=== PATIENT | female | born 1945 | race Caucasian/White ===

== ENCOUNTER 2018-04-12 10:11 | Observation (INO) | payer MEDICARE, OTHER ==
[2018-04-12] MEDS ORDERED: Sodium Chloride 0.9% 1,000 ML IV STA (10:37)
--- NOTE | 2018-04-12 10:47 | ED PDOC ---
Arrival/HPI - General Historian: Patient, Family - History of Present Illness Symptom Onset: Sudden Symptom Course: Improving Quality: Stabbing Severity Level: 8 <Bebeto Flores - Last Filed: 04/12/18 16:14> <Chucho Shah DO - Last Filed: 04/12/18 17:25> - General Chief Complaint: GI Problem Time Seen by Provider: 04/12/18 10:14 - History of Present Illness Narrative History of Present Illness (Text): 72 year old female presents with history of 3x vomit and 5x diarrhea since last night. She woke up this morning at 5 AM and had an unrelenting headache and dizziness along with sharp diffuse abdominal pain. Headache was not describable but she described it as being painful on top of her scalp. Abdominal pain was concentrated in the epigastric area and she has never had this kind of pain before. Pain is still present currently but has lessened. Shortly after, she reports nonbloody vomitus, which relieved her headache and dizziness. She has vomited once per hour since then. She also reports having a constant urge to defecate and has had 5 episodes of black-brown diarrhea since waking up. In addition, she reports nonproductive cough for 1 week and was reportedly given an antibiotic by her PCP, Dr. Ho. 04/12/18 10:48 (Bebeto Flores) Past Medical History - Provider Review Nursing Documentation Reviewed: Yes - Past History Past History: Non-Contributing - Cardiac Hx Hyperlipemia: Yes Hx Hypertension: Yes - Pulmonary Hx Respiratory Disorders: No - Neurological Hx Paralysis: No - HEENT Hx HEENT Disorder: No - Renal Hx Renal Disorder: No - Endocrine/Metabolic Hx Endocrine Disorders: No - Hematological/Oncological Hx Blood Transfusions: No - Integumentary Hx Dermatological Disorder: No - Musculoskeletal/Rheumatological Hx Musculoskeletal Disorders: Yes - Gastrointestinal Hx Gastrointestinal Disorders: Yes Other/Comment: ON AND OFF ABDOMINAL PAINS, ileus - Genitourinary/Gynecological Hx Genitourinary Disorders: No - Psychiatric Hx Emotional Abuse: No Hx Physical Abuse: No Hx Substance Use: No - Surgical History Hx Appendectomy: Yes - Anesthesia Hx Anesthesia Reactions: No Hx Malignant Hyperthermia: No - Suicidal Assessment Feels Threatened In Home Enviroment: No <Bebeto Flores - Last Filed: 04/12/18 16:14> Family/Social History - Physician Review Nursing Documentation Reviewed: Yes Family/Social History: Unknown Family HX Smoking Status: Never Smoked Hx Alcohol Use: No Hx Substance Use: No Hx Substance Use Treatment: No <Bebeto Flores - Last Filed: 04/12/18 16:14> Allergies/Home Meds <Bebeto Flores - Last Filed: 04/12/18 16:14> <Chucho Shah DO - Last Filed: 04/12/18 17:25> Allergies/Adverse Reactions: Allergies No Known Allergies Allergy (Verified 05/09/14 14:56) Home Medications: Home Meds Medication Instructions Recorded Confirmed Acetaminophen/Butalbital/Caf 1 tab PO TID PRN 04/12/18 04/12/18 [Fioricet] Hydroxyzine HCl [Hydroxyzine HCl] 10 mg PO BID 04/12/18 04/12/18 Levocetirizine Dihydrochloride 5 mg PO DAILY 04/12/18 04/12/18 [Xyzal] Lisinopril [Zestril] 5 mg PO DAILY 04/12/18 04/12/18 Review of Systems - Physician Review All systems were reviewed & negative as marked: Yes - Review of Systems Constitutional: Fatigue Respiratory: SOB, Cough Cardiovascular: Chest Pain Gastrointestinal: Abdominal Pain, Diarrhea, Nausea, Vomiting <Bebeto Flores - Last Filed: 04/12/18 16:14> Physical Exam Vital Signs Reviewed: Yes Temperature: Afebrile Blood Pressure: Hypertensive Pulse: Regular Respiratory Rate: Normal Appearance: Positive for: Well-Appearing, Non-Toxic Pain Distress: Moderate Mental Status: Positive for: Alert and Oriented X 3 - Systems Exam Head: Present: Atraumatic, Normocephalic Pupils: Present: PERRL Mouth: Present: Moist Mucous Membranes Nose (External): Present: Atraumatic Nose (Internal): Present: Normal Inspection Neck: Present: Normal Range of Motion Respiratory/Chest: Present: Clear to Auscultation Cardiovascular: Present: Regular Rate and Rhythm Abdomen: Present: Tenderness, Normal Bowel Sounds Upper Extremity: Present: Normal Inspection, Normal ROM, NORMAL PULSES Lower Extremity: Present: Normal Inspection, NORMAL PULSES, Normal ROM Neurological: Present: GCS=15, Speech Normal, Motor Func Grossly Intact, Normal Sensory Function Skin: Present: Warm, Dry <Bebeto Flores - Last Filed: 04/12/18 16:14> <Chucho Shah DO - Last Filed: 04/12/18 17:25> Vital Signs Temp Pulse Resp BP Pulse Ox 04/12/18 15:35 75 18 141/68 97 04/12/18 14:36 79 18 145/71 97 04/12/18 13:54 86 18 148/79 97 04/12/18 10:33 98.4 F 90 18 157/87 H 97 Medical Decision Making <Bebeto Flores - Last Filed: 04/12/18 16:14> <Chucho Shah DO - Last Filed: 04/12/18 17:25> ED Course and Treatment: Impression: 72 year old female presents with 3x nonbloody vomitus and 5x nonbloody diarrhea for 1 day. Assessment: Possible small bowel obstruction Rule out pancreatitis, cholecystitis, peptic ulcer disease, gastritis Rule out ACS as reason for reproducible chest pain. Plan: Start zofran 4 mg IVP for vomitus. Start pepcid 20 mg IV for gastric issues. Urine culture to determine etiology of possible infection. Chest X ray to evaluate for pneumonia. Abdominal CT to be done for evaluation of SBO, pancreatitis, and cholecystitis. Lipase study to be done to evaluate for pancreatitis. Troponin to rule out myocardial infarction. Abdominal CT results showed an incarcerated hernia. Patient has been consulted to surgery for evalulation for possible surgery and will be admitted to the surgery and medicine services. 04/12/18 16:15 (Bebeto Flores) A 72 year old female with episodes of vomiting and diarrhea. In agreement with resident note, which includes further HPI details. Patient was seen and evaluated with resident, came up with plan and treatment together. (Chucho Shah DO) - Lab Interpretations Lab Results: 04/12/18 11:15 04/12/18 11:15 Lab Results 04/12/18 11:15: PT 10.9, INR 0.96, APTT 28.0 04/12/18 11:15: Urine Color Yellow, Urine Appearance Clear, Urine pH 7.0, Ur Specific Eagar 1.020, Urine Protein 100 H, Urine Glucose (UA) Negative, Urine Ketones Negative, Urine Blood Small H, Urine Nitrate Negative, Urine Bilirubin Negative, Urine Urobilinogen 1.0 H, Ur Leukocyte Esterase Trace H, Urine RBC 10 - 15, Urine WBC 5 - 10, Ur Epithelial Cells 6 - 8, Amorphous Sediment Moderate, Urine Bacteria Many, Coarse Granular Casts Trace H, Urine Other Uyeast 04/12/18 11:15: Sodium 141, Potassium 3.8, Chloride 101, Carbon Dioxide 28, Anion Gap 17, BUN 15, Creatinine 0.6 L, Est GFR ( Amer) > 60, Est GFR ( Non-Af Amer) > 60, Random Glucose 131 H, Calcium 9.1, Magnesium 1.6 L, Total Bilirubin 0.5, AST 28, ALT 28, Alkaline Phosphatase 64, Lactate Dehydrogenase 525, Total Creatine Kinase 53, Troponin I < 0.01, Total Protein 7.5, Albumin 4.2 , Globulin 3.3, Albumin/Globulin Ratio 1.3, Lipase 99 04/12/18 11:15: WBC 13.1 H D, RBC 4.58, Hgb 13.4, Hct 40.1, MCV 87.6, MCH 29.3, MCHC 33.4, RDW 12.7, Plt Count 236, MPV 8.1, Gran % 90.5 H, Lymph % (Auto) 7.2 L , Mckinley % (Auto) 2.1, Eos % (Auto) 0.0 L, Baso % (Auto) 0.2, Gran # 11.90 H, Lymph # (Auto) 0.9 L, Mckinley # (Auto) 0.3, Eos # (Auto) 0.0, Baso # (Auto) 0.02, Neutrophils % (Manual) 92 H, Lymphocytes % (Manual) 8 L, Monocytes % (Manual) TEST NOT PERFORMED, Platelet Evaluation Normal - RAD Interpretation Radiology Orders: 04/12/18 10:38 ABD & PELVIS IV CONTRAST ONLY [CT] Stat 04/12/18 10:40 CHEST PORTABLE [RAD] Stat - Medication Orders Current Medication Orders: Sodium Chloride (Sodium Chloride 0.9%) 1,000 mls @ 100 mls/hr IV .Q10H MÓNICA Last Admin: 04/12/18 16:55 Dose: 100 mls/hr eMAR Start Stop Document 04/12/18 16:55 AJ (Rec: 04/12/18 16:56 AJ [id number]) Intravenous Solution Start Date 04/12/18 Start Time 16:56 Magnesium 2 gm/50 ml NS (Magnesium Sulfate 2 Gm/50 Ml Ns) 2 gm in 50 mls @ 50 mls/hr IVPB ONCE ONE Stop: 04/12/18 17:34 Last Admin: 04/12/18 17:16 Dose: 50 mls/hr eMAR Start Stop Document 04/12/18 17:16 AJ (Rec: 04/12/18 17:16 AJ [id number]) Intravenous Solution Start Date 04/12/18 Start Time 17:16 Lisinopril (Zestril) 5 mg PO DAILY MÓNICA Ondansetron HCl (Zofran Inj) 4 mg IVP Q6H PRN PRN Reason: Nausea/Vomiting Pantoprazole Sodium (Protonix Inj) 40 mg IVP DAILY MÓNICA Discontinued Medications Famotidine (Pepcid) 20 mg IVP STAT STA Stop: 04/12/18 10:38 Last Admin: 04/12/18 10:56 Dose: 20 mg IVP Administration Document 04/12/18 10:56 AJ (Rec: 04/12/18 10:56 AJ [id number]) Charges for Administration # of IVP Administrations 1 Sodium Chloride (Sodium Chloride 0.9%) 1,000 mls @ 100 mls/hr IV .Q10H STA Stop: 04/12/18 20:36 Last Admin: 04/12/18 10:56 Dose: 100 mls/hr eMAR Start Stop Document 04/12/18 10:56 AJ (Rec: 04/12/18 10:56 AJ [id number]) Intravenous Solution Start Date 04/12/18 Start Time 10:56 Piperacillin Sod/Tazobactam Sod (Zosyn 4.5 Gm In Ns 100ml) 4.5 gm in 100 mls @ 200 mls/hr IVPB STAT STA PRN Reason: Protocol Stop: 04/12/18 15:12 Last Admin: 04/12/18 14:57 Dose: 200 mls/hr eMAR Start Stop Document 04/12/18 14:57 AJ (Rec: 04/12/18 14:57 AJ [id number]) Intravenous Solution Start Date 04/12/18 Start Time 14:57 End Date 04/12/18 End time 15:27 Total Infusion Time 30 Ondansetron HCl (Zofran Inj) 4 mg IVP STAT STA Stop: 04/12/18 10:38 Last Admin: 04/12/18 10:55 Dose: 4 mg IVP Administration Document 04/12/18 10:55 AJ (Rec: 04/12/18 10:55 AJ [id number]) Charges for Administration # of IVP Administrations 1 - PA / ARMED SECURITY GUARD / Resident Statement LORRIE has reviewed & agrees with the documentation as recorded. LORRIE has examined the patient and agrees with the treatment plan. <Bebeto Flores - Last Filed: 04/12/18 16:14> - PA / ARMED SECURITY GUARD / Resident Statement LORRIE has reviewed & agrees with the documentation as recorded. LORRIE has examined the patient and agrees with the treatment plan. - Scribe Statement The provider has reviewed the documentation as recorded by the Scribe <Chucho Shah DO - Last Filed: 04/12/18 17:25> - Scribe Statement Shabnam Owen Provider Scribe Attestation: All medical record entries made by the Scribe were at my direction and personally dictated by me. I have reviewed the chart and agree that the record accurately reflects my personal performance of the history, physical exam, medical decision making, and the department course for this patient. I have also personally directed, reviewed, and agree with the discharge instructions and disposition. (Chucho Shah DO) Disposition/Present on Arrival - Present on Arrival Any Indicators Present on Arrival: No History of DVT/PE: No History of Uncontrolled Diabetes: No Urinary Catheter: No History Surgical Site Infection Following: None - Disposition Have Diagnosis and Disposition been Completed?: Yes Disposition Time: 16:15 <Bebeto Flores - Last Filed: 04/12/18 16:14> - Disposition Disposition Time: 14:05 <Chucho Shah DO - Last Filed: 04/12/18 17:25> - Disposition Diagnosis: Incarcerated hernia Disposition: HOSPITALIZED Patient Problems: Current Active Problems Problem Status Onset Incarcerated hernia Acute Condition: GUARDED
[2018-04-12 11:08] VITALS: BMI 34.3
--- NOTE | 2018-04-12 11:15 | RAD ---
HISTORY: cough - r/o infiltrate COMPARISON: No prior. FINDINGS: LUNGS: Mild bibasilar atelectasis. Questionable small left-sided effusion PLEURA: No significant pleural effusion identified, no pneumothorax apparent. CARDIOVASCULAR: Moderate to fairly significant cardiomegaly OSSEOUS STRUCTURES: .Mild multilevel degenerative spondylosis of the thoracic spine VISUALIZED UPPER ABDOMEN: Normal. OTHER FINDINGS: None. IMPRESSION: Mild bibasilar atelectasis. Questionable small left-sided effusion
[2018-04-12 11:37] LABS: BASO # 0.02 K/mm3 (0.0-2.0); BASO % 0.2 % (0.0-3.0); GRAN % 90.5 % (50.0-68.0); HEMOGLOBIN 13.4 g/dL (12.0-16.0); LYMPH # 0.9 (1.2-3.4); LYMPH % 7.2 % (22.0-35.0); MEAN CELL VOLUME 87.6 fl (80.0-105.0); MEAN CORPUSCULAR HEMOGLOBIN 29.3 pg (25.0-35.0); MEAN CORPUSCULAR HGB CONC 33.4 g/dl (31.0-37.0); MEAN PLATELET VOLUME 8.1 fl (7.0-11.0); MONO # 0.3 (0.1-0.6); MONO % 2.1 % (1.0-6.0); PLATELET COUNT 236 10^3/uL (120.0-450.0); RBC 4.58 10^6/uL (3.5-6.1); RED CELL DISTRIBUTION WIDTH 12.7 % (11.5-14.5); WHITE BLOOD COUNT 13.1 10^3/ul (4.5-11.0)
[2018-04-12 11:43] LABS: URINE BILIRUBIN NEGATIVE (NEGATIVE); URINE BLOOD SMALL (NEGATIVE); URINE GLUCOSE (UA) NEGATIVE (NEGATIVE); URINE LEUKOCYTE ESTERASE TRACE Leu/uL (NEGATIVE); URINE PROTEIN 100 mg/dL (<30 mg/dL)
[2018-04-12 11:48] LABS: ALB/GLOB RATIO 1.3 (1.1-1.8); ALBUMIN 4.2 g/dL (3.0-4.8); ALT/SGPT 28 U/L (7-56); AST/SGOT 28 U/L (14-36); BLOOD UREA NITROGEN 15 mg/dL (7-21); CALCIUM 9.1 mg/dL (8.4-10.5); GFR AFRICAN-AMERICAN > 60; GFR NON-AFRICAN AMERICAN > 60; LIPASE 99 U/L (23-300)
[2018-04-12 11:53] LABS: URINE APPEARANCE CLEAR (CLEAR); URINE COLOR YELLOW (YELLOW)
[2018-04-12] MEDS ORDERED: Iohexol 350 MG/100 ML VIAL ONE (11:53)
[2018-04-12 11:59] LABS: TROPONIN I < 0.01 ng/mL
[2018-04-12 12:16] LABS: URINE BACTERIA MANY (NEG)
[2018-04-12 12:17] LABS: URINE AMORPHOUS SEDIMENT MODERATE; URINE COARSE GRANULAR CAST TRACE /hpf (0-2)
[2018-04-12 12:24] LABS: LYMPHOCYTE 8 % (22.0-35.0); NEUTROPHIL 92 % (50.0-70.0); PLATELET ESTIMATE NORMAL (NORMAL)
--- NOTE | 2018-04-12 14:06 | CT ---
PROCEDURE: CT abdomen pelvis dated 04/12/2018 HISTORY: Diffuse abdominal pain COMPARISON: Comparison made with prior CT scan abdomen pelvis 01/21/2017. TECHNIQUE: Contiguous axial images of the abdomen and pelvis performed following intravenous injection of approximately 100 cc Omnipaque 350 contrast material. Additional 2D sagittal and coronal reformats generated. This CT exam was performed using one or more of the following dose reduction techniques: Automated exposure control, adjustment of the mA and/or kV according to patient size, and/or use of iterative reconstruction technique. Total exam DLP = 660.25 mGy-cm. FINDINGS: LOWER THORAX: Mild passive/dependent type atelectasis. . There are a at chronic appearing atelectasis/scarring changes seen both lung bases including the right middle lobe and to a lesser degree lingular regions. No acute consolidation. No evidence of effusion or basilar pneumothorax. Heart size is mildly enlarged. No significant pericardial effusion. Tiny hiatal hernia with wall thickening of distal esophagus likely due to protrusion of gastric mucosa. . LIVER: The liver is upper limits of normal measuring nearly 18 cm in CC dimension. Mild diffuse fatty hepatic infiltration. No obvious hepatic masses collections or calcifications. No significant intrahepatic biliary ductal dilatation. GALLBLADDER AND BILE DUCTS: UnremarkableIntraluminal gallbladder calculi. . . PANCREAS: Pancreas is slightly atrophic and fatty replaced. No obvious pancreatic mass collection or calcification. SPLEEN: Unremarkable. No splenomegaly. ADRENALS: No adrenal lesions. KIDNEYS AND URETERS: Kidneys demonstrate relatively symmetric size and nephrograms. . No evidence of nephrolithiasis or hydronephrosis. BLADDER: Urinary bladder is physiologically distended with mild wall thickening and therefore correlation with urinalysis recommended to exclude the possibility of a cystitis. . Mild wall thickening REPRODUCTIVE: There is a prominent endometrial canal for postmenopausal patient. Recommend followup transvaginal ultrasound further evaluation of the endometrium. APPENDIX: Right-sided colectomy changes as above BOWEL: Evaluation of the bowel is somewhat limited due to the lack of oral contrast material. Stomach is incompletely distended which presumably accounts thick-walled appearance. . There is a left parasagittal mid ventral wall paraumbilical hernia that contains mesenteric fat as well as a loop of small bowel that exhibits mild wall thickening and a small amount of fluid and surrounding infiltration. . There is a dilatation and wall thickening of the proximal loop of small bowel extending into this hernia (afferent loop of bowel). . Findings are most likely represent incarceration at and possibly strangulation with early ischemia. Distal small bowel loops appear collapsed. Apparent partial right-sided colectomy. Clinical correlation recommended. PERITONEUM: There is a small amount of free fluid seen in the pelvis. LYMPH NODES: Unremarkable. No enlarged lymph nodes. VASCULATURE: Unremarkable. No aortic aneurysm. BONES: Multilevel degenerative spondylosis of the lower thoracic and lumbar spine. No acute compression fractures no retropulsed fragments. OTHER FINDINGS: None. IMPRESSION: There is a left parasagittal mid ventral wall - paraumbilical hernia containing a loop of small bowel that exhibits wall thickening and infiltration changes in the adjacent mesenteries. Findings likely represent incarceration with possible early ischemia. There is also wall thickening of the current loop of bowel which is dilated. Loops of small bowel distal to the hernia appear collapsed. Partial right-sided colectomy. Fatty hepatic infiltration. Cholelithiasis. Prominence of the endometrium in a postmenopausal at age patient. Followup pelvic ultrasound recommended to exclude endometrial pathology including endometrial carcinoma. Urgent findings were discussed with emergency room physician Dr. Shah approximately 2 p.m. with written down and read back verification.
[2018-04-12] MEDS ORDERED: Piperacill/Tazo 4.5gm in NS 4.5 GM/100 ML BAG IVPB STA (14:43)
[2018-04-12 14:58] LABS: INR 0.96 (0.93-1.08); PROTHROMBIN TIME 10.9 SECONDS (9.4-12.5)
--- NOTE | 2018-04-12 16:06 | CP.PCM.CON ---
<Cyn Haywood - Last Filed: 04/12/18 16:46> History of Present Illness - History of Present Illness History of Present Illness: GENERAL SURGERY CONSULT NOTE FOR DR. HANKINS Pt is a 72 yo F with PMHx of esophagitis, gastritis, diverticulosis and numerous abdominal surgeries. She comes in to the ED, brought in by ambulance after a morning episode of emesis and 4 bouts of diarrhea, non bloody. She then developed abdominal pain that she rated 8/10. She also noted that every time she would cough, or vomit she would feel a bump of her abdomen expand. She states that she has had a hernia present on the left paraumbilical area for the past 2 years and prior surgical intervention was recommended, which she refused. Her pain is now improved to 5/6 and is localized to her left paraumbilical hernia. She last passed flatus yesterday. PMHx: HTN, diverticulosis, gastritis, esophagitis Surgeries: partial colectomy, x3 Allerg: none Social hx: denies etoh, tobacco or illicit drug abuse Review of Systems - Constitutional Constitutional: absent: Chills, Fever, Night Sweats - EENT Eyes: absent: Blurred Vision, Loss of Peripheral Vision, Other Visual Disturbances Ears: absent: Decreased Hearing, Ear Discharge, Tinnitus Nose/Mouth/Throat: absent: Epistaxis, Nasal Congestion - Cardiovascular Cardiovascular: absent: Chest Pain, Edema, Irregular Heart Rhythm - Respiratory Respiratory: Cough. absent: Dyspnea on Exertion, Wheezing - Gastrointestinal Gastrointestinal: Abdominal Pain, Diarrhea, Nausea. absent: Coffee Ground Emesis, Hematemesis, Hematochezia - Musculoskeletal Musculoskeletal: absent: Muscle Cramps, Muscle Weakness, Myalgias - Integumentary Integumentary: absent: New Lesions, Non-Healing Lesions, Rash - Neurological Neurological: absent: Numbness, Loss of Vision, Sensory Deficit, Tingling Past Patient History - Infectious Disease Hx of Infectious Diseases: None - Past Medical History & Family History Past Medical History?: Yes - Past Social History Smoking Status: Never Smoked Alcohol: None Home Situation {Lives}: With Family - CARDIAC Hx Cardiac Disorders: No Hx Angina: No Hx Heart Attack: No Hx Hypertension: Yes - PULMONARY Hx Respiratory Disorders: No - NEUROLOGICAL Hx Paralysis: No - HEENT Hx HEENT Problems: No - RENAL Hx Chronic Kidney Disease: No - ENDOCRINE/METABOLIC Hx Endocrine Disorders: No - HEMATOLOGICAL/ONCOLOGICAL Hx Blood Transfusions: No - INTEGUMENTARY Hx Dermatological Problems: No - MUSCULOSKELETAL/RHEUMATOLOGICAL Hx Musculoskeletal Disorders: Yes - GASTROINTESTINAL Hx Gastrointestinal Disorders: Yes Hx Bowel Surgery: Yes (Stated had bowel surgery for prior colon infection 30 years ago) Hx Clostridium Difficile: No Hx Colostomy: No Hx Constipation: No Hx Crohn's Disease: No Hx Diarrhea: Yes Hx Diverticulitis: Yes Hx Esophageal Varices: No Hx Gastritis: Yes Hx Nausea: Yes Hx Vomiting: Yes Other/Comment: ON AND OFF ABDOMINAL PAINS, ileus - GENITOURINARY/GYNECOLOGICAL Hx Genitourinary Disorders: No - PSYCHIATRIC Hx Emotional Abuse: No Hx Physical Abuse: No Hx Substance Use: No - SURGICAL HISTORY Hx Appendectomy: Yes Hx Section: Yes (3 prior) - ANESTHESIA Hx Anesthesia Reactions: No Hx Malignant Hyperthermia: No Meds Allergies/Adverse Reactions: Allergies Allergy/AdvReac Type Severity Reaction Status Date / Time No Known Allergies Allergy Verified 05/09/14 14:56 - Medications Medications: Current Medications Sodium Chloride (Sodium Chloride 0.9%) 1,000 mls @ 100 mls/hr IV .Q10H STA Stop: 04/12/18 20:36 Last Admin: 04/12/18 10:56 Dose: 100 mls/hr Physical Exam - Constitutional Appears: Well, Non-toxic - Head Exam Head Exam: ATRAUMATIC, NORMOCEPHALIC - Eye Exam Eye Exam: EOMI, Normal appearance, PERRL - Respiratory Exam Respiratory Exam: Clear to Auscultation Bilateral, NORMAL BREATHING PATTERN - Cardiovascular Exam Cardiovascular Exam: REGULAR RHYTHM, RRR. absent: Gallop, Rubs - GI/Abdominal Exam GI & Abdominal Exam: Hernia, Soft. absent: Distended, Firm, Guarding, Rebound, Rigid, Tenderness Additional comments: Non tender, easily reducible ventral hernia at left paraumbilical area. No overlying erythema or skin changes. No rebound/rigidity/guarding. No peritoneal signs. Well healed lower midline scar - Neurological Exam Neurological exam: Alert, Oriented x3 - Psychiatric Exam Psychiatric exam: Normal Affect, Normal Mood - Skin Skin Exam: Dry, Intact, Normal Color, Warm Additional comments: No skin changes noted over paraumbilical hernia. Results - Vital Signs Recent Vital Signs: Last Vital Signs Temp 98.4 F 04/12/18 10:33 Pulse 75 04/12/18 15:35 Resp 18 04/12/18 15:35 BP 141/68 04/12/18 15:35 Pulse Ox 97 04/12/18 15:35 - Labs Result Diagrams: 04/12/18 11:15 04/12/18 11:15 Assessment & Plan - Assessment and Plan (Free Text) Assessment: Pt is a 72 yo F who presents for a reducible ventral hernia at the left paraumbilical area. Plan: - F/u stat lactate - Serial abdominal exams - Continue NPO, IV fluids - Monitor I/Os - Anti-emetic/analegsic medication PRN - Further recs per Dr. Hankins <Jayesh Hankins - Last Filed: 04/15/18 15:05> Results - Vital Signs Recent Vital Signs: Last Vital Signs Temp 98.5 F 04/13/18 06:00 Pulse 85 04/13/18 09:13 Resp 20 04/13/18 06:00 BP 176/98 H 04/13/18 09:13 Pulse Ox 95 04/13/18 06:00 - Labs Result Diagrams: 04/13/18 04:30 04/13/18 04:30 Attending/Attestation - Attestation I have personally seen and examined this patient.: Yes I have fully participated in the care of the patient.: Yes I have reviewed all pertinent clinical information: Yes Notes (Text): Pt was seen and examined at bedside Agree with above note and assessment Pt with Abdominal pain and reducible incisional hernia Labs and radiology reviewed Ass: Incisional hernia Plan : f.u lactate level c.w current mx Start liquid diet Plan d.w pt in detail Risk and benefit explained in detail
[2018-04-12] MEDS ORDERED: Magnesium 2 gm/50 ml NS 2 GM/50 ML BAG IVPB ONE (16:35)
[2018-04-12] MEDS: Sodium Chloride 0.9% 1,000 ML IV SCH (16:55)
--- NOTE | 2018-04-12 16:55 | CP.PCM.HP ---
History of Present Illness - History of Present Illness History of Present Illness: cc: vomiting and diarrhea HPI: This is 72 year old female with PMH of HTN, who presents to [facility] [place] for vomiting and diarrhea x1 day. Per patient, she began experiencing nausea around 10AM this morning and subsequently had bouts of vomitus and non-bloody, dark-colored diarrhea. Patient says that this has never happened before, however she noticed that her existing abdominal hernia has become more prominent, which prompted her to arrive to the ED. Patient states she was diagnosed with hernia several years prior to intra-abdominal surgery due to complication during C/S. The patient describes the vomitus as some food followed by liquid, but denied any hematemesis. Patient admits to dizziness, chronic mild cough, hernia. ROS otherwise unremarkable for chest pain, SOB, hematochezia, and/or fever. Patient says she is able to ambulate well with or without a cane and lives at home with her daughter. PMH: HTN Surgeries: S/P C/S x3, and subsequent partial hemicolectomy Allergies: NKDA Social History: - Denies ETOH, drugs, and/or tobacco. Patient lives at home with her daughter Family History: - Sister: due to breast cancer - Brother: due to prostate cancer - patient denies family history of heart disease PMD: Arnol Knight Medications, as per [facility] Pharmacy: [facility] Present on Admission - Present on Admission Any Indicators Present on Admission: No History of DVT/PE: No History of Uncontrolled Diabetes: No Urinary Catheter: No Decubitus Ulcer Present: No History Surgical Site Infection Following: None Review of Systems - Review of Systems All systems: reviewed and no additional remarkable complaints except (12 point ROS reviewed, and is negative other than what is indicated in HPI) Past Patient History - Infectious Disease Hx of Infectious Diseases: None - Past Medical History & Family History Past Medical History?: Yes - Past Social History Smoking Status: Never Smoked Alcohol: None Home Situation {Lives}: With Family - CARDIAC Hx Cardiac Disorders: No Hx Angina: No Hx Heart Attack: No Hx Hypertension: Yes - PULMONARY Hx Respiratory Disorders: No - NEUROLOGICAL Hx Paralysis: No - HEENT Hx HEENT Problems: No - RENAL Hx Chronic Kidney Disease: No - ENDOCRINE/METABOLIC Hx Endocrine Disorders: No - HEMATOLOGICAL/ONCOLOGICAL Hx Blood Transfusions: No - INTEGUMENTARY Hx Dermatological Problems: No - MUSCULOSKELETAL/RHEUMATOLOGICAL Hx Musculoskeletal Disorders: Yes - GASTROINTESTINAL Hx Gastrointestinal Disorders: Yes Hx Bowel Surgery: Yes (Stated had bowel surgery for prior colon infection 30 years ago) Hx Clostridium Difficile: No Hx Colostomy: No Hx Constipation: No Hx Crohn's Disease: No Hx Diarrhea: Yes Hx Diverticulitis: Yes Hx Esophageal Varices: No Hx Gastritis: Yes Hx Nausea: Yes Hx Vomiting: Yes Other/Comment: ON AND OFF ABDOMINAL PAINS, ileus - GENITOURINARY/GYNECOLOGICAL Hx Genitourinary Disorders: No - PSYCHIATRIC Hx Emotional Abuse: No Hx Physical Abuse: No Hx Substance Use: No - SURGICAL HISTORY Hx Appendectomy: Yes Hx Section: Yes (3 prior) - ANESTHESIA Hx Anesthesia Reactions: No Hx Malignant Hyperthermia: No Meds Allergies/Adverse Reactions: Allergies Allergy/AdvReac Type Severity Reaction Status Date / Time No Known Allergies Allergy Verified 05/09/14 14:56 Physical Exam - Constitutional Appears: No Acute Distress - Head Exam Head Exam: ATRAUMATIC, NORMAL INSPECTION, NORMOCEPHALIC - Eye Exam Eye Exam: Normal appearance. absent: Conjunctival injection, Periorbital swelling - ENT Exam ENT Exam: Mucous Membranes Moist, Normal Exam, Normal Oropharynx - Neck Exam Neck exam: Positive for: Full Rom, Normal Inspection. Negative for: Lymphadenopathy, Tenderness, Thyromegaly - Respiratory Exam Respiratory Exam: Clear to Auscultation Bilateral, NORMAL BREATHING PATTERN. absent: Accessory Muscle Use, Chest Wall Tenderness, Decreased Breath Sounds, Prolonged Expiratory Phase, Rales, Rhonchi, Wheezes, Respiratory Distress, Stridor - Cardiovascular Exam Cardiovascular Exam: REGULAR RHYTHM, RRR. absent: Gallop, Rubs, Systolic Murmur - GI/Abdominal Exam GI & Abdominal Exam: Hernia (periumbilical ventral hernia ), Normal Bowel Sounds , Tenderness (diffuse tenderness to palpation and percussion ). absent: Bruit, Diminished Bowel Sounds, Distended, Firm, Guarding, Hyperactive Bowel Sounds, Hypoactive Bowel Sounds, Mass, Rebound, Rigid Additional comments: ventral scar midline spanning 4 inches along abdomen - Extremities Exam Extremities exam: Positive for: full ROM, normal inspection. Negative for: calf tenderness, pedal edema, tenderness - Back Exam Back exam: FULL ROM, NORMAL INSPECTION. absent: CVA tenderness (L), CVA tenderness (R), muscle spasm, paraspinal tenderness, rash noted - Neurological Exam Neurological exam: Alert, CN II-XII Intact, Normal Gait, Oriented x3 - Psychiatric Exam Psychiatric exam: Normal Affect, Normal Mood - Skin Skin Exam: Dry, Intact, Normal Color, Warm Results - Vital Signs Recent Vital Signs: Last Vital Signs Temp 98.4 F 04/12/18 10:33 Pulse 75 04/12/18 15:35 Resp 18 04/12/18 15:35 BP 141/68 04/12/18 15:35 Pulse Ox 97 04/12/18 15:35 - Labs Result Diagrams: 04/12/18 11:15 04/12/18 11:15 Assessment & Plan - Assessment and Plan (Free Text) Assessment: This is a 72 year old female with PMH of HTN, and distant history of intra- abdominal surgeries including C/S x3 with subsequent partial hemicolectomy, who presents to [facility] [place] for vomiting and diarrhea. 1. periumbilical ventral abdominal hernia - Lactic Acid pending - CT showed periumbilical ventral hernia containing loop of small bowel - Surgery consulted and onboard - Keep NPO - IVF - WBC 13.1 on admission - 1 dose Zosyn 4.5mg given in ED - Consider Zofran for nausea - EKG findings: normal sinus rate 94 - Trops neg x1 - CXR: bibasilar atelectasis - incentive spirometry ordered - Stool occult pending 2. Hypomagnesemia - 1.6 on admission - replete with IVPB mag sulfate - continue to monitor and replete as needed 3. Hx HTN - continue home meds 4. Abnormal endometrium on CT ABD - Recommend follow up outpatient for ultrasound GI/ DVT PPX - Protonix - SCD for DVT PPX dispo: Patient has no cardiac history, COPD, family history of heart disease, diabetes; Age is the only risk factor, and as such, patient is medically clear for surgery, low-mod risk. Patient was seen and discussed with Dr. Hidalgo. Timothy Brown PGY1
[2018-04-12 18:27] LABS: VENOUS BLOOD GAS BASE EXCESS 4.6 mmol/L (0.0-2.0); VENOUS BLOOD GAS PO2 33 mm/Hg (30-55); VENOUS BLOOD PH 7.36 (7.32-7.43)
[2018-04-12 19:00] VITALS: RESP 20
[2018-04-13 04:57] LABS: BASO # 0.02 K/mm3 (0.0-2.0); BASO % 0.2 % (0.0-3.0); EOS # 0.2 (0.0-0.7); EOS % 1.8 % (1.5-5.0); GRAN # 8.36 (1.4-6.5); GRAN % 74.5 % (50.0-68.0); HEMOGLOBIN 12.2 g/dL (12.0-16.0); LYMPH % 17.6 % (22.0-35.0); MEAN CELL VOLUME 89.4 fl (80.0-105.0); MEAN CORPUSCULAR HEMOGLOBIN 28.8 pg (25.0-35.0); MEAN CORPUSCULAR HGB CONC 32.3 g/dl (31.0-37.0); MEAN PLATELET VOLUME 8.2 fl (7.0-11.0); MONO # 0.7 (0.1-0.6); MONO % 5.9 % (1.0-6.0); RBC 4.23 10^6/uL (3.5-6.1); RED CELL DISTRIBUTION WIDTH 13.1 % (11.5-14.5); WHITE BLOOD COUNT 11.2 10^3/ul (4.5-11.0)
[2018-04-13 05:29] LABS: ALB/GLOB RATIO 1.2 (1.1-1.8); ALT/SGPT 27 U/L (7-56); AST/SGOT 24 U/L (14-36); BLOOD UREA NITROGEN 15 mg/dL (7-21); CALCIUM 8.9 mg/dL (8.4-10.5); GFR AFRICAN-AMERICAN > 60; GFR NON-AFRICAN AMERICAN > 60
[2018-04-13] MEDS: Sodium Chloride 0.9% 1,000 ML IV SCH (05:54)
[2018-04-13 08:14] VITALS: PULSE 85; TEMP 98.5; O2SAT 95
[2018-04-13 09:14] VITALS: BP 176/98
--- NOTE | 2018-04-13 09:32 | CARD ---
APPROVED REPORT EKG Measurement Heart [id number] <Conclusion> Normal sinus rhythm Possible Left atrial enlargement Left axis deviation Possible Inferior infarct, age undetermined NSSTW changes Prolonged QTc
--- NOTE | 2018-04-13 09:51 | CP.PCM.PN ---
<Cyn Haywood - Last Filed: 04/13/18 14:29> Subjective - Date & Time of Evaluation Date of Evaluation: 04/13/18 Time of Evaluation: 09:46 - Subjective Subjective: General Surgery Note for Dr. Hankins Pt was seen and examined this morning at bedside. She has had no acute overnight events. She continues to complain of 4/10 abdominal pain when coughing. the ventral hernia is reducible and she states that she is amenable to outpt followup and robotic surgery intervention with Dr. Hankins. Denies fevers, chills, nausea, or vomiting. She is able to eat without pain and has passed flatus and had a BM this AM. Objective - Vital Signs/Intake and Output Vital Signs (last 24 hours): Temp Pulse Resp BP Pulse Ox 98.5 F 85 20 176/98 H 95 04/13/18 06:00 04/13/18 09:13 04/13/18 06:00 04/13/18 09:13 04/13/18 06:00 Intake and Output: 04/13/18 04/13/18 06:59 18:59 Intake Total 600 Balance 600 - Medications Medications: Current Medications Lisinopril (Zestril) 5 mg PO DAILY [facility] Last Admin: 04/13/18 09:13 Dose: 5 mg Ondansetron HCl (Zofran Inj) 4 mg IVP Q6H PRN PRN Reason: Nausea/Vomiting Pantoprazole Sodium (Protonix Inj) 40 mg IVP DAILY [facility] Last Admin: 04/13/18 09:13 Dose: 40 mg - Labs Labs: 04/13/18 04:30 04/13/18 04:30 PT 10.9 SECONDS (9.4-12.5) 04/12/18 11:15 INR 0.96 (0.93-1.08) 04/12/18 11:15 APTT 28.0 Seconds (25.1-36.5) 04/12/18 11:15 - Constitutional Appears: Well, Non-toxic, No Acute Distress - Head Exam Head Exam: ATRAUMATIC, NORMOCEPHALIC - Eye Exam Eye Exam: EOMI, Normal appearance Pupil Exam: PERRL - ENT Exam ENT Exam: Mucous Membranes Moist - Respiratory Exam Respiratory Exam: Clear to Ausculation Bilateral, NORMAL BREATHING PATTERN - Cardiovascular Exam Cardiovascular Exam: REGULAR RHYTHM, RRR - GI/Abdominal Exam GI & Abdominal Exam: Soft, Hernia, Normal Bowel Sounds. absent: Firm, Guarding , Rigid Additional comments: Ventral hernia located on the left side in the paraumbilical area - Neurological Exam Neurological Exam: Alert, Awake, Oriented x3 - Psychiatric Exam Psychiatric exam: Normal Affect, Normal Mood - Skin Skin Exam: Dry, Intact, Normal Color, Warm Additional comments: No skin changes noted over the hernia site. Assessment and Plan - Assessment and Plan (Free Text) Assessment: Pt is a 72 yo F who presents for a reducible ventral hernia at the left paraumbilical area. Plan: - Rec outpt follow up with Dr. Hankins for elective robotic hernia repair. - Advance diet as tolerated - Discussed with Dr. Hankins. <Jayesh Hankins - Last Filed: 04/15/18 15:19> Objective - Vital Signs/Intake and Output Vital Signs (last 24 hours): Temp Pulse Resp BP Pulse Ox 98.5 F 85 20 176/98 H 95 04/13/18 06:00 04/13/18 09:13 04/13/18 06:00 04/13/18 09:13 04/13/18 06:00 - Labs Labs: 04/13/18 04:30 04/13/18 04:30 PT 10.9 SECONDS (9.4-12.5) 04/12/18 11:15 INR 0.96 (0.93-1.08) 04/12/18 11:15 APTT 28.0 Seconds (25.1-36.5) 04/12/18 11:15 Attending/Attestation - Attestation I have personally seen and examined this patient.: Yes I have fully participated in the care of the patient.: Yes I have reviewed all pertinent clinical information, including history, physical exam and plan: Yes Notes (Text): Pt was seen and examined at bedside Agree with above note and assessment Pt is improved clinically Tolerating diet f/u as out pt for hernia repair Plan d.w pt in detail Risk and benefit explained in detail.
--- NOTE | 2018-04-13 16:51 | CP.PCM.DIS ---
Addendum entered and electronically signed by Uli Saldivar DO 04/14/18 14:31 : After patient had been discharged, urine cultures returned positive for Enterococcus faecalis, which is sensitive to ampicillin. Patient was contacted via phone and results were explained and discussed. Prescription for Amoxicillin 500 mg BID x7 days was called in to her pharmacy, [facility] in [place], [place] . Patient was instructed to complete 7 day course of antibiotics. Close outpatient follow up was also reiterated. Patient acknowledged and agreed to plan. Original Note: <Uli Saldivar - Last Filed: 04/13/18 16:37> Provider - Provider Date of Admission: 04/12/18 14:45 Attending physician: Gerard Hidalgo MD Consults: Surgery: Cr Time Spent in preparation of Discharge (in minutes): 45 Diagnosis - Discharge Diagnosis (1) Incarcerated hernia Status: Acute Priority: Medium Hospital Course - Lab Results Lab Results: Most Recent Lab Values WBC 11.2 10^3/ul (4.5-11.0) H 04/13/18 04:30 RBC 4.23 10^6/uL (3.5-6.1) 04/13/18 04:30 Hgb 12.2 g/dL (12.0-16.0) 04/13/18 04:30 Hct 37.8 % (36.0-48.0) 04/13/18 04:30 MCV 89.4 fl (80.0-105.0) 04/13/18 04:30 MCH 28.8 pg (25.0-35.0) 04/13/18 04:30 MCHC 32.3 g/dl (31.0-37.0) 04/13/18 04:30 RDW 13.1 % (11.5-14.5) 04/13/18 04:30 Plt Count 268 10^3/uL (120.0-450.0) 04/13/18 04:30 MPV 8.2 fl (7.0-11.0) 04/13/18 04:30 Gran % 74.5 % (50.0-68.0) H 04/13/18 04:30 Lymph % (Auto) 17.6 % (22.0-35.0) L 04/13/18 04:30 [place] % (Auto) 5.9 % (1.0-6.0) 04/13/18 04:30 Eos % (Auto) 1.8 % (1.5-5.0) 04/13/18 04:30 Baso % (Auto) 0.2 % (0.0-3.0) 04/13/18 04:30 Gran # 8.36 (1.4-6.5) H 04/13/18 04:30 Lymph # (Auto) 2.0 (1.2-3.4) 04/13/18 04:30 [place] # (Auto) 0.7 (0.1-0.6) H 04/13/18 04:30 Eos # (Auto) 0.2 (0.0-0.7) 04/13/18 04:30 Baso # (Auto) 0.02 K/mm3 (0.0-2.0) 04/13/18 04:30 Neutrophils % (Manual) 92 % (50.0-70.0) H 04/12/18 11:15 Lymphocytes % (Manual) 8 % (22.0-35.0) L 04/12/18 11:15 Monocytes % (Manual) TEST NOT PERFORMED 04/12/18 11:15 Platelet Evaluation Normal (NORMAL) 04/12/18 11:15 PT 10.9 SECONDS (9.4-12.5) 04/12/18 11:15 INR 0.96 (0.93-1.08) 04/12/18 11:15 APTT 28.0 Seconds (25.1-36.5) 04/12/18 11:15 pO2 33 mm/Hg (30-55) 04/12/18 18:22 VBG pH 7.36 (7.32-7.43) 04/12/18 18:22 VBG pCO2 56.0 (40-60) 04/12/18 18:22 VBG HCO3 31.6 mmol/l (21-28) H 04/12/18 18:22 VBG Total CO2 33.3 mmol.L (22-28) H 04/12/18 18:22 VBG O2 Sat (Calc) 67.3 % (40-65) H 04/12/18 18:22 VBG Base Excess 4.6 mmol/L (0.0-2.0) H 04/12/18 18:22 VBG Potassium 4.0 mmol/L (3.6-5.2) 04/12/18 18:22 Sodium 141.0 mmol/L (132-148) 04/12/18 18:22 Chloride 103.0 mmol/L (98-107) 04/12/18 18:22 Glucose 128 mg/dl (65-105) H 04/12/18 18:22 Lactate 1.3 mmol/L (0.7-2.1) 04/12/18 18:22 FiO2 21.0 % 04/12/18 18:22 Sodium 144 mmol/L (132-148) 04/13/18 04:30 Potassium 4.0 mmol/L (3.6-5.0) 04/13/18 04:30 Chloride 104 mmol/L (98-107) 04/13/18 04:30 Carbon Dioxide 28 mmol/L (21-33) 04/13/18 04:30 Anion Gap 16 (10-20) 04/13/18 04:30 BUN 15 mg/dL (7-21) 04/13/18 04:30 Creatinine 0.7 mg/dl (0.7-1.2) 04/13/18 04:30 Est GFR ( Amer) > 60 04/13/18 04:30 Est GFR (Non-Af Amer) > 60 04/13/18 04:30 Random Glucose 115 mg/dL (70-110) H 04/13/18 04:30 Lactic Acid 1.1 mmol/L (0.7-2.1) 04/13/18 04:30 Calcium 8.9 mg/dL (8.4-10.5) 04/13/18 04:30 Phosphorus 3.4 mg/dL (2.5-4.5) 04/13/18 04:30 Magnesium 2.5 mg/dL (1.7-2.2) H 04/13/18 04:30 Total Bilirubin 0.5 mg/dL (0.2-1.3) 04/13/18 04:30 AST 24 U/L (14-36) 04/13/18 04:30 ALT 27 U/L (7-56) 04/13/18 04:30 Alkaline Phosphatase 54 U/L (38-126) 04/13/18 04:30 Lactate Dehydrogenase 525 U/L (333-699) 04/12/18 11:15 Total Creatine Kinase 53 U/L (35-230) 04/12/18 11:15 Troponin I < 0.01 ng/mL 04/12/18 11:15 Total Protein 7.2 g/dL (5.8-8.3) 04/13/18 04:30 Albumin 4.0 g/dL (3.0-4.8) 04/13/18 04:30 Globulin 3.2 gm/dL 04/13/18 04:30 Albumin/Globulin Ratio 1.2 (1.1-1.8) 04/13/18 04:30 Lipase 99 U/L (23-300) 04/12/18 11:15 Venous Blood Potassium 4.0 mmol/L (3.6-5.2) 04/12/18 18:22 Urine Color Yellow (YELLOW) 04/12/18 11:15 Urine Appearance Clear (CLEAR) 04/12/18 11:15 Urine pH 7.0 (4.7-8.0) 04/12/18 11:15 Ur Specific R[place]y 1.020 (1.005-1.035) 04/12/18 11:15 Urine Protein 100 mg/dL (<30 mg/dL) H 04/12/18 11:15 Urine Glucose (UA) Negative mg/dL (NEGATIVE) 04/12/18 11:15 Urine Ketones Negative mg/dL (NEGATIVE) 04/12/18 11:15 Urine Blood Small (NEGATIVE) H 04/12/18 11:15 Urine Nitrate Negative (NEGATIVE) 04/12/18 11:15 Urine Bilirubin Negative (NEGATIVE) 04/12/18 11:15 Urine Urobilinogen 1.0 E.U./dL (<1 E.U./dL) H 04/12/18 11:15 Ur Leukocyte Esterase Trace Kinga/uL (NEGATIVE) H 04/12/18 11:15 Urine RBC 10 - 15 /hpf (0-2) 04/12/18 11:15 Urine WBC 5 - 10 /hpf (0-6) 04/12/18 11:15 Ur Epithelial Cells 6 - 8 /hpf (0-5) 04/12/18 11:15 Amorphous Sediment Moderate 04/12/18 11:15 Urine Bacteria Many (NEG) 04/12/18 11:15 Coarse Granular Casts Trace /hpf (0-2) H 04/12/18 11:15 Urine Other Uyeast 04/12/18 11:15 - Hospital Course Hospital Course: Patient is a 72 yo F with PMH of HTN presented to [facility] due to one day history of nausea, vomiting, and diarrhea. Patient also stated that she had noticed her abdominal hernia had increased in size. She was previously advised for outpatient surgery, but did not follow up. CT of the abdomen and pelvis revealed an incarcerated periumbical hernia, fatty infiltration of the liver, cholelithiasis, and thickened endometrial stripe. CXR showed bibasilar atelectasis. Patient was admitted for evaluation and treatment for an incarcerated periumbilical hernia. Serum lactate was trended. Initially it was mildly elevated, but normalized. Patient was evaluated by surgery, who recommended outpatient robotic surgery as the hernia was reducible and lactate was normal. Today, patient was seen and evaluated at bedside. No acute distress. Patient states that pain, nausea, vomiting, and diarrhea improved. Patient denied CP, SOB, fever, chills, GRIFFITHS, or dizziness. Patient was advised to follow up with Surgery and PMD within 3-5 days. Rx for Lisinopril was given. Risks and benefits were explained. Patient advised to resume home medications. Patient also advised to follow up with her OBGYN due to abnormal endometrial findings on CT. Patient acknowledged and agreed to plan. Case was discussed with all treasury consultant, who agreed with plan. As patient was medically stable, she was discharged. Discharge Medications - Lisinopril 5 mg PO daily #14 Discharge Exam - Head Exam Head Exam: ATRAUMATIC, NORMOCEPHALIC - Eye Exam Eye Exam: EOMI, Normal appearance, PERRL Pupil Exam: NORMAL ACCOMODATION, PERRL - ENT Exam ENT Exam: Mucous Membranes Moist - Neck Exam Neck exam: Full Rom - Respiratory Exam Respiratory Exam: Clear to PA & Lateral. absent: Rales, Rhonchi, Wheezes - Cardiovascular Exam Cardiovascular Exam: RRR, +S1, +S2. absent: Gallop, Rubs, +S4, Systolic Murmur - GI/Abdominal Exam GI & Abdominal Exam: Hernia (3 cm periumbilical hernia), Normal Bowel Sounds, Soft, Tenderness (mild). absent: Distended, Guarding, Rebound - Rectal Exam Rectal Exam: NORMAL INSPECTION - Extremities Exam Extremities exam: normal inspection - Back Exam Back exam: NORMAL INSPECTION - Neurological Exam Neurological exam: Alert, CN II-XII Intact, Normal Gait, Oriented x3, Reflexes Normal - Psychiatric Exam Psychiatric exam: Normal Affect, Normal Mood - Skin Skin Exam: Dry, Intact, Normal Color, Warm Discharge Plan - Discharge Medications Prescriptions: Lisinopril [Zestril] 5 mg PO DAILY #14 tab - Follow Up Plan Condition: GUARDED Disposition: HOME/ ROUTINE Instructions: Abdominal Hernia (DC), Open Herniorrhaphy (DC), Laparoscopic Herniorrhaphy (DC), Inguinal Hernia (DC) Additional Instructions: 1. Follow up with primary doctor within 3-5 days 2. Follow up with Dr. Hankins, surgeon within 3-5 days 3. Follow up with OBGYN within 3-5 days for transvaginal ultrasound 4. Resume medications as prescribed 5. Return to ED if symptoms return Referrals: Jayesh Hankins MD [Medical Doctor] - <Keira Cervantes - Last Filed: 04/14/18 15:06> Provider - Provider Date of Admission: 04/12/18 14:45 Attending physician: Gerard Hidalgo MD Hospital Course - Lab Results Lab Results: Most Recent Lab Values WBC 11.2 10^3/ul (4.5-11.0) H 04/13/18 04:30 RBC 4.23 10^6/uL (3.5-6.1) 04/13/18 04:30 Hgb 12.2 g/dL (12.0-16.0) 04/13/18 04:30 Hct 37.8 % (36.0-48.0) 04/13/18 04:30 MCV 89.4 fl (80.0-105.0) 04/13/18 04:30 MCH 28.8 pg (25.0-35.0) 04/13/18 04:30 MCHC 32.3 g/dl (31.0-37.0) 04/13/18 04:30 RDW 13.1 % (11.5-14.5) 04/13/18 04:30 Plt Count 268 10^3/uL (120.0-450.0) 04/13/18 04:30 MPV 8.2 fl (7.0-11.0) 04/13/18 04:30 Gran % 74.5 % (50.0-68.0) H 04/13/18 04:30 Lymph % (Auto) 17.6 % (22.0-35.0) L 04/13/18 04:30 [place] % (Auto) 5.9 % (1.0-6.0) 04/13/18 04:30 Eos % (Auto) 1.8 % (1.5-5.0) 04/13/18 04:30 Baso % (Auto) 0.2 % (0.0-3.0) 04/13/18 04:30 Gran # 8.36 (1.4-6.5) H 04/13/18 04:30 Lymph # (Auto) 2.0 (1.2-3.4) 04/13/18 04:30 [place] # (Auto) 0.7 (0.1-0.6) H 04/13/18 04:30 Eos # (Auto) 0.2 (0.0-0.7) 04/13/18 04:30 Baso # (Auto) 0.02 K/mm3 (0.0-2.0) 04/13/18 04:30 Neutrophils % (Manual) 92 % (50.0-70.0) H 04/12/18 11:15 Lymphocytes % (Manual) 8 % (22.0-35.0) L 04/12/18 11:15 Monocytes % (Manual) TEST NOT PERFORMED 04/12/18 11:15 Platelet Evaluation Normal (NORMAL) 04/12/18 11:15 PT 10.9 SECONDS (9.4-12.5) 04/12/18 11:15 INR 0.96 (0.93-1.08) 04/12/18 11:15 APTT 28.0 Seconds (25.1-36.5) 04/12/18 11:15 pO2 33 mm/Hg (30-55) 04/12/18 18:22 VBG pH 7.36 (7.32-7.43) 04/12/18 18:22 VBG pCO2 56.0 (40-60) 04/12/18 18:22 VBG HCO3 31.6 mmol/l (21-28) H 04/12/18 18:22 VBG Total CO2 33.3 mmol.L (22-28) H 04/12/18 18:22 VBG O2 Sat (Calc) 67.3 % (40-65) H 04/12/18 18:22 VBG Base Excess 4.6 mmol/L (0.0-2.0) H 04/12/18 18:22 VBG Potassium 4.0 mmol/L (3.6-5.2) 04/12/18 18:22 Sodium 141.0 mmol/L (132-148) 04/12/18 18: Chloride 103.0 mmol/L (98-107) 04/12/18 18: Glucose 128 mg/dl (65-105) H 04/12/18 18: Lactate 1.3 mmol/L (0.7-2.1) 04/12/18 18:22 FiO2 21.0 % 04/12/18 18: Sodium 144 mmol/L (132-148) 04/13/18 04:30 Potassium 4.0 mmol/L (3.6-5.0) 04/13/18 04:30 Chloride 104 mmol/L (98-107) 04/13/18 04:30 Carbon Dioxide 28 mmol/L (21-33) 04/13/18 04:30 Anion Gap 16 (10-20) 04/13/18 04:30 BUN 15 mg/dL (7-21) 04/13/18 04:30 Creatinine 0.7 mg/dl (0.7-1.2) 04/13/18 04:30 Est GFR ( Amer) > 60 04/13/18 04:30 Est GFR (Non-Af Amer) > 60 04/13/18 04:30 Random Glucose 115 mg/dL (70-110) H 04/13/18 04:30 Lactic Acid 1.1 mmol/L (0.7-2.1) 04/13/18 04:30 Calcium 8.9 mg/dL (8.4-10.5) 04/13/18 04:30 Phosphorus 3.4 mg/dL (2.5-4.5) 04/13/18 04:30 Magnesium 2.5 mg/dL (1.7-2.2) H 04/13/18 04:30 Total Bilirubin 0.5 mg/dL (0.2-1.3) 04/13/18 04:30 AST 24 U/L (14-36) 04/13/18 04:30 ALT 27 U/L (7-56) 04/13/18 04:30 Alkaline Phosphatase 54 U/L (38-126) 04/13/18 04:30 Lactate Dehydrogenase 525 U/L (333-699) 04/12/18 11:15 Total Creatine Kinase 53 U/L (35-230) 04/12/18 11:15 Troponin I < 0.01 ng/mL 04/12/18 11:15 Total Protein 7.2 g/dL (5.8-8.3) 04/13/18 04:30 Albumin 4.0 g/dL (3.0-4.8) 04/13/18 04:30 Globulin 3.2 gm/dL 04/13/18 04:30 Albumin/Globulin Ratio 1.2 (1.1-1.8) 04/13/18 04:30 Lipase 99 U/L (23-300) 04/12/18 11:15 Venous Blood Potassium 4.0 mmol/L (3.6-5.2) 04/12/18 18:22 Urine Color Yellow (YELLOW) 04/12/18 11:15 Urine Appearance Clear (CLEAR) 04/12/18 11:15 Urine pH 7.0 (4.7-8.0) 04/12/18 11:15 Ur Specific [place] 1.020 (1.005-1.035) 04/12/18 11:15 Urine Protein 100 mg/dL (<30 mg/dL) H 04/12/18 11:15 Urine Glucose (UA) Negative mg/dL (NEGATIVE) 04/12/18 11:15 Urine Ketones Negative mg/dL (NEGATIVE) 04/12/18 11:15 Urine Blood Small (NEGATIVE) H 04/12/18 11:15 Urine Nitrate Negative (NEGATIVE) 04/12/18 11:15 Urine Bilirubin Negative (NEGATIVE) 04/12/18 11:15 Urine Urobilinogen 1.0 E.U./dL (<1 E.U./dL) H 04/12/18 11:15 Ur Leukocyte Esterase Trace Kinga/uL (NEGATIVE) H 04/12/18 11:15 Urine RBC 10 - 15 /hpf (0-2) 04/12/18 11:15 Urine WBC 5 - 10 /hpf (0-6) 04/12/18 11:15 Ur Epithelial Cells 6 - 8 /hpf (0-5) 04/12/18 11:15 Amorphous Sediment Moderate 04/12/18 11:15 Urine Bacteria Many (NEG) 04/12/18 11:15 Coarse Granular Casts Trace /hpf (0-2) H 04/12/18 11:15 Urine Other Uyeast 04/12/18 11:15 Attending/Attestation - Attestation I have personally seen and examined this patient.: Yes I have fully participated in the care of the patient.: Yes I have reviewed all pertinent clinical information, including history, physical exam and plan: Yes Notes (Text): Patient seen and examined by me at 10:10 AM 04/13/18 with resident at bedside. Case including discharge plan instructions was discussed with the resident. Agree with above with following additions/changes. Patient states that she is feeling much better today. Abdominal pain has improved. Diarrhea also improved. Patient was seen by surgical team. Randy umbilical hernia was reduced. Patient was cleared for discharge by surgical team. Patient tolerating diet. Patient wants to go home. Patient denies any chest pain or shortness of breath. No nausea or vomiting. No headaches or dizziness. No chills. No dysuria or burning with urination. No increased urinary frequency. No fevers or chills. Patient was found to have elevated blood pressure and was started on lisinopril. Patient was given prescription for lisinopril upon discharge. The pressure did improve. All symptoms improved upon discharge. Please note that patient's condition was not guarded as stated above. Cleared for discharge by surgery with outpatient follow-up. Patient to follow- up with her primary care doctor within 3-5 days. He should follow up with surgeon within 3-5 days. Patient to follow-up with her chaser tar within 3-5 days for transvaginal ultrasound for thickened endometrial stripe. Patient to taking medications as prescribed. Patient to return to emergency room if symptoms return. All instructions were explained to the patient in detail. Patient with understands and agrees to all instructions. Physical exam: Gen: Patient is awake and alert sitting up in bed in no acute distress HEENT: Normocephalic atraumatic, extraocular muscles intact, pupils equal reactive, oropharynx is pink and moist, no pharyngeal erythema or exudate appreciated, neck is supple. Cardiovascular: Normal rhythm, normal S1-S2, no murmurs rubs or gallops appreciated Pulmonary: Normal respiratory effort. No rhonchi, rales, or wheezing appreciated Gastrointestinal: Soft, mild generalized tenderness, nondistended, positive bowel sounds all 4 quadrants, no guarding, positive reducible periumbilical hernia Musculoskeletal: Moves all extremities, no calf tenderness Central nervous system: AAO 3 Dermatologic: Skin warm and dry Time spent to discharge. 35 minutes. Addendum: The following day after discharge, patient's urine culture came back positive for Enterococcus faecalis. This was sensitive to penicillin. Prescription for amoxicillin called in. Patient was informed of the findings and instructed on treatment. Patient was also advised to follow-up with primary care doctor for repeat urinalysis and urine culture once completed with antibiotics.
== END 2018-04-13 15:07 | disposition home or self-care (01) ==
LOC: ED 10:11 → ERH 14:45 → INTOOBSV 14:45 → ERH 16:12 → 5RNO 17:25 → 5RSO 17:26 → UNDODISIN 04-13 14:33
PROVIDERS: ADMIT Internal Medicine; ATTEND Internal Medicine
DX: K42.0 Umbilical hernia with obstruction, without gangrene (principal); K43.9 Ventral hernia without obstruction or gangrene; I10 Essential (primary) hypertension; E83.42 Hypomagnesemia; J98.11 Atelectasis; K80.20 Calculus of gallbladder without cholecystitis without obstruction; K76.0 Fatty (change of) liver, not elsewhere classified; E78.5 Hyperlipidemia, unspecified; Z80.3 Family history of malignant neoplasm of breast
CPT/HCPCS: 36415; 71045; 74177; 80053; 81001; 82550; 82803; 83605; 83615; 83690; 83735; 84100; 84484; 85025; 85610; 85730; 87086; 87181; 93005; 96365; 96375; 99285; C9113; G0378; J2405; J2543; J3475; J7030; Q9967